=== PATIENT | male | born 1955 | race African-American/Black ===

== ENCOUNTER → 2016-07-23 | Outpatient (CLI) | payer OTHER ==
[2014-11-22 13:46] VITALS: BP 157/89
[~2016-07-23] MED LIST: ESOM20CA30 PO; GADOBUTROL 7.5 MMOL/7.5 ML VIAL IV ONE; LISI-334 PO; MESA1.2T PO; MULT1TAB52 PO
--- NOTE | 2016-07-23 12:26 | RAD ---
EXAM: MRI abdomen with and without contrast HISTORY: Primary sclerosing cholangitis, liver mass, abnormal CT TECHNIQUE: MRI of the abdomen was performed before and after the intravenous administration of 7.5 mL Gadavist. COMPARISON: None available. FINDINGS: Liver: There is no significant steatosis. There are multiple intrahepatic biliary strictures with peripheral mild biliary dilatation most notable in the right lobe. This is consistent with the given diagnosis of primary sclerosing cholangeitis. There is decreased hepatic parenchymal signal in segment 7 and 6 with architectural distortion. There are multiple intrahepatic biliary strictures in this region. The region develops delayed enhancement a discrete mass is not identified. There is wall thickening and hyperenhancement of the common duct with a focal at least moderate stricture just proximal to the pancreatic head. Biliary tree: The gallbladder is surgically absent. The common duct is not dilated. There are no suspicious pancreatic parenchymal lesions. The pancreatic duct is not dilated. Other findings: There are small cysts bilaterally in the kidneys. The spleen is mildly enlarged at 13 cm. The adrenal glands are unremarkable. IMPRESSION: 1. Multiple intrahepatic biliary strictures are consistent with the given history of primary sclerosing cholangitis. There is loss of normal intrahepatic parenchymal signal in hepatic segments 7 and 6. This is consistent with fibrosis. A discrete mass cannot be differentiated from background fibrosis and many strictures on this study, but they can be very subtle. Ongoing follow-up is recommended. If there is further concern for intrahepatic malignancy, a triple phase CT may further another chance at detection. 2. Moderate stricture within the common duct chest proximal to the pancreatic head. 3. Mild splenomegaly.
== END | disposition home or self-care (01) ==
LOC: MRI 07:41
PROVIDERS: ATTEND Internal Medicine Gastroenterology
DX: R16.0 Hepatomegaly, not elsewhere classified (principal); R16.1 Splenomegaly, not elsewhere classified
CPT/HCPCS: 74183

== ENCOUNTER → 2021-07-04 | Outpatient (CLI) | payer OTHER ==
[2014-11-22 13:46] VITALS: BP 157/89
[~2021-07-04] MED LIST changes: -GADOBUTROL 7.5 MMOL/7.5 ML VIAL IV ONE; +GADOTERATE 5 MMOL/10ML VIAL. IVP ONE; +LIALDA1.2 GM PO; -LISI-334 PO; +LISI20TA18 PO; +MESA0.372 PO; -MESA1.2T PO; +MULT-445 PO; -MULT1TAB52 PO; +OMEP20CA16 PO; +TACR0.5C2 PO
--- NOTE | 2021-07-04 12:58 | KCIC ---
EXAMINATION: MRI/MRCP abdomen with and without IV contrast. INDICATION:66 years, Male, history of liver transplant. Bile duct stricture. 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 History of colitis with abdominal pain. Portal vein s tent. TECHNIQUE: Multiplanar multisequence MRI/MRCP of the abdomen was performed. 3-D coronal heavily T2-we ighted MRCP sequences obtained. COMPARISON: MRI dated 07/23/2016. FINDINGS: LOWER CHEST: Unremarkable. ABDOMEN: Interval post liver transplant changes. The liver appears normal in size and morphology. Mild heterog eneous enhancement of the liver parenchyma on arterial phase images with homogeneous enhancement on s ubsequent postcontrast sequences, likely secondary to perfusion changes. No steatosis or iron deposit ion. Focal blooming artifact in the right liver, may relate to metallic clip. No suspicious focal hep atic lesion. Right and left portal veins are patent with no filling defect. Susceptibility artifact i n the main portal vein related to known portal vein stent. Splenic vein and SMV are patent. Patent co mmon, right and left hepatic arteries. Patent hepatic veins. Cholecystectomy. No intra or extrahepatic biliary ductal dilation. The maximum diameter of the extrah epatic bile duct measures 5 mm. Normal spleen. Mildly atrophic pancreatic parenchyma. No main pancrea tic ductal dilation. Similar nodular thickening of the adrenal glands without discrete nodule. No hyd ronephrosis in either kidney. Simple bilateral renal cortical cysts, the largest measures 2.2 cm, inc reasing in size since prior exam which measures 1.1 cm. No bowel dilation. Wall thickening of colonic hepatic flexure. No lymphadenopathy in the abdomen by s ize criteria. Normal caliber abdominal aorta. Mesenteric arteries are patent. No ascites. MUSCULOSKELETAL STRUCTURES: Postsurgical changes along the anterior abdominal wall. No suspicious osseous lesion. IMPRESSION: 1. No intra or extrahepatic biliary ductal dilation. 2. Normal MRI appearance of the liver transplant with no suspicious focal lesion. Patent hepatic vasc ulatures. 3. Wall thickening of the colonic hepatic flexure without adjacent fat stranding, findings may relate to mild infectious/inflammatory colitis. 4. Simple bilateral renal cysts measuring up to 2.2 cm, increasing since prior exam. Electronically signed by: Jak Michelle MD (07/04/2021 12:56 PM) [id number]
== END ==
LOC: KCIC MRI 08:51
PROVIDERS: ATTEND Internal Medicine Gastroenterology
DX: Q44.3 Congenital stenosis and stricture of bile ducts (principal); N28.1 Cyst of kidney, acquired; K63.89 Other specified diseases of intestine; K86.89 Other specified diseases of pancreas; E27.8 Other specified disorders of adrenal gland; Z90.49 Acquired absence of other specified parts of digestive tract; Z94.4 Liver transplant status
CPT/HCPCS: 74182; 82565; A9575